=== PATIENT | male | born 1960 | race Hispanic/Latino ===

== ENCOUNTER 2024-12-09 22:41 | Emergency (ER) | payer OTHER ==
[~2024-12-09] VITALS: Ht 172.7 cm; Wt 72.6 kg
[2024-12-09] MEDS: HYDROcodone/APAP 5/325 1 TAB TABLET PO ONE (23:55)
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
[2024-12-10 02:20] VITALS: BP 144/73; PULSE 81; RESP 18; TEMP 98.2; O2SAT 98
[2024-12-10] MEDS: HYDROcodone/APAP 5/325 1 TAB TABLET PO ONE (02:29)
== END 2024-12-10 02:30 | disposition home or self-care (01) ==
LOC: EDH 22:41 → EEVIPCON 22:41 → EDH 12-10 02:30
DX: S00.83XA Contusion of other part of head, initial encounter (principal); E78.00 Pure hypercholesterolemia, unspecified; I10 Essential (primary) hypertension; Z90.49 Acquired absence of other specified parts of digestive tract; Z95.1 Presence of aortocoronary bypass graft; Y04.0XXA Assault by unarmed brawl or fight, initial encounter; Y93.89 Activity, other specified; Y92.89 Other specified places as the place of occurrence of the external cause; Y99.8 Other external cause status
CPT/HCPCS: 70450; 70486; 72125; 73030; 99284